=== PATIENT | female | born 1955 | race Caucasian/White ===

== ENCOUNTER 2017-06-06 08:36 | Emergency (ER) | payer SELFPAY ==
[~2017-06-06] VITALS: Ht 154.9 cm; Wt 56.8 kg
[2017-06-06 08:38] VITALS: BP 165/99; PULSE 102; RESP 16; TEMP 99.4; O2SAT 97
[2017-06-06] MEDS ORDERED: PHEN1LIQ60 PO (08:48)
[2017-06-06] MEDS ORDERED: ZITHTAB PO (09:16)
--- NOTE | 2017-06-06 09:16 | PD ---
HPI Chief Complaint: Cold / Flu Symptoms Time Seen by Provider: 09:05 Travel History International Travel<30 days: No Contact w/Intl Traveler<30days: [place] Traveled to: [place] Traveled to known affect area: No History of Present Illness HPI 61-year-old female complains of coughing congestion headache, abdominal cramping , body ache. Patient states that the symptoms started a few days ago. Patient states that headache and mild aching headache diffuse over the head. Patient denies any visual change. Patient denies any neck pain. Patient denies any chest pain or shortness of breath. Patient states the cough is persistent and dry cough. Patient states that she has intermittent cramping localized to lower abdomen. Patient denies any dysuria or frequency. Patient denies any vaginal discharge or bleeding. PFSH Past Medical History Hx Anticoagulant Therapy: No Heart Rhythm Problems: No Cardiac Catheterization: No Cardiovascular Problems: No High Cholesterol: No Congestive Heart Failure: No Diabetes: No Diminished Hearing: No Hepatitis: Yes (HEP C) Hypertension: No Neurologic: Yes (RAMOS'S PALSY) Myocardial Infarction: No Influenza Vaccination: No ?: Not Past Surgical History Appendectomy: Yes Section: Yes Coronary Artery Bypass Graft: No Other Surgery: Yes (MASS REMOVED FROM LEFT SAIVARY GLAND) Social History Alcohol Use: Yes (social) Tobacco Use: No Substance Use: Yes (FORMER HEROIN USE) Allergies-Medications (Allergen,Severity, Reaction): Coded Allergies: prochlorperazine (Unverified Allergy, Mild, 06/06/17) sulfamethoxazole (Unverified Allergy, Mild, 06/06/17) trimethoprim (Unverified Allergy, Mild, 06/06/17) Reported Meds & Prescriptions Reported Meds & Active Scripts Active Reported Nyquil Severe Cold/Flu Liq (Kioslwwioslwq-Iibprkdswv-YT-Apap Liq) 5-6.25-10-325 Mg/15 Ml Liq 1 Oz PO DIRECTED Review of Systems General / Constitutional: No: Fever Eyes: No: Visual changes HENT: No: Headaches Cardiovascular: No: Chest Pain or Discomfort Respiratory: Positive: Cough, No: Shortness of Breath Gastrointestinal: Positive: Abdominal Pain Genitourinary: No: Dysuria Musculoskeletal: No: Pain Skin: No Rash Neurologic: No: Weakness Psychiatric: No: Depression Endocrine: No: Polydipsia Hematologic/Lymphatic: No: Easy Bruising Physical Exam Narrative GENERAL: Well-nourished, well-developed patient. SKIN: Focused skin assessment warm/dry. HEAD: Normocephalic. EYES: No scleral icterus. No injection or drainage. TM: Clear. Throat: Mild erythematous. NECK: Supple, trachea midline. No JVD or lymphadenopathy. No meningismus CARDIOVASCULAR: Regular rate and rhythm without murmurs, gallops, or rubs. RESPIRATORY: Breath sounds equal bilaterally. No accessory muscle use. GASTROINTESTINAL: Abdomen soft, non-tender, nondistended. MUSCULOSKELETAL: No cyanosis, or edema. BACK: Nontender without obvious deformity. No CVA tenderness. Neurologic exam normal. Data Data Last Documented VS Vital Signs Date Time Temp Pulse Resp B/P (MAP) Pulse Ox O2 Delivery O2 Flow Rate FiO2 06/06/17 08:38 99.4 102 16 165/99 (121) 97 MDM Medical Decision Making Medical Screen Exam Complete: Yes Emergency Medical Condition: Yes Differential Diagnosis Differential diagnosis including viral syndrome, bronchitis, pneumonia. Narrative Course 61-year-old female with sore throat coughing congestion headache. Diagnosis Primary Impression: Bronchitis Additional Impression: Viral syndrome Patient Instructions: General Instructions Additional Instructions: Z-Fam As directed. Qmqv-[id number]-gpwzmao cough medication as directed. Tylenol for fever. Follow-up with personal physician. Return if worse. Med/Other Pt SpecificInfo: Prescription(s) given Scripts Azithromycin (Zithromax Z-Fam) 250 Mg Dspk 250 MG PO DIRECTED for Infection, #1 DSPK 0 Refills 500 MG (2 tabs) day 1, then 1 tab days 2-5. Prov: Gab Syed MD 06/06/17 Disposition: 01 DISCHARGE HOME Condition: Stable Gab Syed MD Jun 06, 2017 09:16
== END 2017-06-06 09:25 | disposition home or self-care (01) ==
LOC: PHED 08:36
DX: J40 Bronchitis, not specified as acute or chronic (principal); B19.20 Unspecified viral hepatitis C without hepatic coma
CPT/HCPCS: 99283